=== PATIENT | female | born 1955 | race Caucasian/White ===

== ENCOUNTER → 2019-10-06 13:46 | Outpatient (BNVA) | payer MEDICARE, SELFPAY | PROVIDERS: Family Provider Family Medicine; PCP Family Medicine; Visit Provider Anesthesiology | DX: M54.5 Low back pain (principal); M54.6 Pain in thoracic spine; M54.2 Cervicalgia; G50.0 Trigeminal neuralgia; Z79.891 Long term (current) use of opiate analgesic | CPT/HCPCS: 99214 ==

== ENCOUNTER → 2019-10-29 12:55 | Outpatient (BNVA) | payer MEDICARE, SELFPAY | PROVIDERS: Family Provider Family Medicine; PCP Family Medicine; Visit Provider Nurse Practitioner Psychiatric/Mental Health | DX: F33.41 Major depressive disorder, recurrent, in partial remission (principal); F41.0 Panic disorder [episodic paroxysmal anxiety]; G89.29 Other chronic pain | CPT/HCPCS: 99213 ==

== ENCOUNTER → 2019-12-28 08:29 | Outpatient (BNVA) | payer MEDICARE, SELFPAY | PROVIDERS: Family Provider Family Medicine; PCP Family Medicine; Visit Provider Nurse Practitioner Psychiatric/Mental Health | DX: F33.41 Major depressive disorder, recurrent, in partial remission (principal); F41.0 Panic disorder [episodic paroxysmal anxiety]; G89.29 Other chronic pain | CPT/HCPCS: 99212 ==

== ENCOUNTER → 2020-02-09 13:00 | Outpatient (BNVA) | payer MEDICARE, SELFPAY | PROVIDERS: Family Provider Family Medicine; PCP Family Medicine; Visit Provider Anesthesiology | DX: G89.29 Other chronic pain (principal); M54.5 Low back pain; M54.6 Pain in thoracic spine; M54.2 Cervicalgia; G50.0 Trigeminal neuralgia; Z79.891 Long term (current) use of opiate analgesic | CPT/HCPCS: 99214 ==

== ENCOUNTER → 2020-02-22 07:35 | Outpatient (BNVA) | payer MEDICARE, SELFPAY | PROVIDERS: Family Provider Family Medicine; PCP Family Medicine; Visit Provider Nurse Practitioner Psychiatric/Mental Health | DX: F33.41 Major depressive disorder, recurrent, in partial remission (principal); F41.0 Panic disorder [episodic paroxysmal anxiety]; G89.29 Other chronic pain | CPT/HCPCS: 99212 ==

== ENCOUNTER → 2020-05-03 10:51 | Outpatient (BNVA) | payer MEDICARE, SELFPAY | PROVIDERS: Family Provider Family Medicine; PCP Family Medicine; Visit Provider Anesthesiology | DX: M54.42 Lumbago with sciatica, left side (principal); M54.6 Pain in thoracic spine; M54.2 Cervicalgia; Z79.891 Long term (current) use of opiate analgesic | CPT/HCPCS: 99214 ==

== ENCOUNTER → 2020-05-23 08:05 | Outpatient (BNVA) | payer MEDICARE, SELFPAY | PROVIDERS: Family Provider Family Medicine; PCP Family Medicine; Visit Provider Nurse Practitioner Psychiatric/Mental Health | DX: F33.41 Major depressive disorder, recurrent, in partial remission (principal); F41.0 Panic disorder [episodic paroxysmal anxiety]; G89.29 Other chronic pain | CPT/HCPCS: G0463 ==

== ENCOUNTER → 2020-07-12 13:25 | Outpatient (BNVA) | payer MEDICARE, SELFPAY | PROVIDERS: Family Provider Family Medicine; PCP Family Medicine; Visit Provider Anesthesiology | DX: M54.42 Lumbago with sciatica, left side (principal); M54.41 Lumbago with sciatica, right side; M54.6 Pain in thoracic spine; M54.2 Cervicalgia; Z79.891 Long term (current) use of opiate analgesic | CPT/HCPCS: 99214 ==

== ENCOUNTER → 2020-08-15 08:47 | Outpatient (BNVA) | payer MEDICARE, SELFPAY | PROVIDERS: Family Provider Family Medicine; PCP Family Medicine; Visit Provider Nurse Practitioner Psychiatric/Mental Health | DX: F33.41 Major depressive disorder, recurrent, in partial remission (principal); F41.0 Panic disorder [episodic paroxysmal anxiety]; G89.29 Other chronic pain | CPT/HCPCS: 99212 ==

== ENCOUNTER → 2020-10-06 13:36 | Outpatient (BNVA) | payer MEDICARE, SELFPAY | PROVIDERS: Family Provider Family Medicine; PCP Family Medicine; Visit Provider Anesthesiology | DX: G89.29 Other chronic pain (principal); M54.5 Low back pain; M54.6 Pain in thoracic spine; M54.2 Cervicalgia; Z79.891 Long term (current) use of opiate analgesic | CPT/HCPCS: 99214 ==

== ENCOUNTER → 2020-11-07 07:44 | Outpatient (BNVA) | payer MEDICARE, SELFPAY | PROVIDERS: Family Provider Family Medicine; PCP Family Medicine; Visit Provider Nurse Practitioner Psychiatric/Mental Health | DX: F33.41 Major depressive disorder, recurrent, in partial remission (principal); F41.0 Panic disorder [episodic paroxysmal anxiety]; G89.29 Other chronic pain | CPT/HCPCS: 99213 ==

== ENCOUNTER → 2020-12-29 13:03 | Outpatient (BNVA) | payer MEDICARE, SELFPAY | PROVIDERS: Family Provider Family Medicine; PCP Family Medicine; Visit Provider Nurse Practitioner | DX: G89.29 Other chronic pain (principal); M54.5 Low back pain; M54.2 Cervicalgia; G50.0 Trigeminal neuralgia; M54.6 Pain in thoracic spine; Z79.891 Long term (current) use of opiate analgesic | CPT/HCPCS: 99213; 99214 ==

== ENCOUNTER → 2021-02-06 08:36 | Outpatient (BNVA) | payer MEDICARE, SELFPAY | PROVIDERS: Family Provider Family Medicine; PCP Family Medicine; Visit Provider Nurse Practitioner Psychiatric/Mental Health | DX: F33.41 Major depressive disorder, recurrent, in partial remission (principal); F41.0 Panic disorder [episodic paroxysmal anxiety]; G89.29 Other chronic pain | CPT/HCPCS: 99213 ==

== ENCOUNTER → 2021-03-07 10:23 | Outpatient (BNVA) | payer MEDICARE, SELFPAY | PROVIDERS: Family Provider Family Medicine; PCP Family Medicine; Visit Provider Nurse Practitioner | DX: G89.29 Other chronic pain (principal); M54.5 Low back pain; M54.6 Pain in thoracic spine; M54.2 Cervicalgia; G50.0 Trigeminal neuralgia; Z79.891 Long term (current) use of opiate analgesic; Z87.891 Personal history of nicotine dependence | CPT/HCPCS: 99213; 99214 ==

== ENCOUNTER → 2021-05-09 07:46 | Outpatient (BNVA) | payer MEDICARE, SELFPAY | PROVIDERS: Family Provider Family Medicine; PCP Family Medicine; Visit Provider Nurse Practitioner Psychiatric/Mental Health | DX: F33.41 Major depressive disorder, recurrent, in partial remission (principal); F41.0 Panic disorder [episodic paroxysmal anxiety]; G89.29 Other chronic pain | CPT/HCPCS: 99213 ==

== ENCOUNTER → 2021-05-30 13:56 | Outpatient (BNVA) | payer MEDICARE, SELFPAY | PROVIDERS: Family Provider Family Medicine; PCP Family Medicine; Visit Provider Anesthesiology | DX: G89.29 Other chronic pain (principal); M54.5 Low back pain; M54.2 Cervicalgia; G50.0 Trigeminal neuralgia; Z79.891 Long term (current) use of opiate analgesic | CPT/HCPCS: 99214 ==

== ENCOUNTER → 2021-07-26 12:41 | Outpatient (BNVA) | payer MEDICARE, SELFPAY | PROVIDERS: Family Provider Family Medicine; PCP Family Medicine; Visit Provider Anesthesiology | DX: G89.29 Other chronic pain (principal); M54.2 Cervicalgia; M54.50 Low back pain, unspecified; M54.6 Pain in thoracic spine; Z79.891 Long term (current) use of opiate analgesic; Z87.891 Personal history of nicotine dependence | CPT/HCPCS: 99214 ==

== ENCOUNTER → 2021-08-07 07:49 | Outpatient (BNVA) | payer MEDICARE, SELFPAY | PROVIDERS: Family Provider Family Medicine; PCP Family Medicine; Visit Provider Nurse Practitioner Psychiatric/Mental Health | DX: F33.41 Major depressive disorder, recurrent, in partial remission (principal); F41.0 Panic disorder [episodic paroxysmal anxiety]; G89.29 Other chronic pain | CPT/HCPCS: 99213 ==

== ENCOUNTER → 2021-09-21 13:09 | Outpatient (BNVA) | payer MEDICARE, SELFPAY | PROVIDERS: Family Provider Family Medicine; PCP Family Medicine; Visit Provider Anesthesiology | DX: G89.29 Other chronic pain (principal); M54.50 Low back pain, unspecified; M54.6 Pain in thoracic spine; M54.2 Cervicalgia; Z79.891 Long term (current) use of opiate analgesic; Z87.891 Personal history of nicotine dependence | CPT/HCPCS: 99214 ==

== ENCOUNTER → 2021-10-30 07:31 | Outpatient (BNVA) | payer MEDICARE, SELFPAY | PROVIDERS: Family Provider Family Medicine; PCP Family Medicine; Visit Provider Nurse Practitioner Psychiatric/Mental Health | DX: F33.41 Major depressive disorder, recurrent, in partial remission (principal); G89.29 Other chronic pain; F41.0 Panic disorder [episodic paroxysmal anxiety] | CPT/HCPCS: 99213 ==

== ENCOUNTER → 2022-02-13 09:29 | Outpatient (BNVA) | payer MEDICARE, SELFPAY | PROVIDERS: Family Provider Family Medicine; PCP Family Medicine; Visit Provider Nurse Practitioner Psychiatric/Mental Health | DX: F41.0 Panic disorder [episodic paroxysmal anxiety] (principal); G89.29 Other chronic pain; F33.41 Major depressive disorder, recurrent, in partial remission | CPT/HCPCS: 99213 ==